=== PATIENT | female | born 1995 | race Caucasian/White ===

== ENCOUNTER 2021-04-04 04:00 | Inpatient (IN) | payer OTHER ==
[2021-04-04] MEDS ORDERED: ELECTROLYTE-148 SOLN 1,000 ML IV SCH (05:15)
[2021-04-04] MEDS ORDERED: METHYLERGONOVINE MALEATE 0.2 MG/1 ML AMP IM PRN (05:16)
[2021-04-04] MEDS ORDERED: BISACODYL 10 MG SUPP.RECT RC PRN (05:16)
[2021-04-04] MEDS ORDERED: oxyCODONE HCL 5 MG TABLET PO PRN (05:16)
[2021-04-04] MEDS ORDERED: BENZOCAINE 28 GM HEMORRHOIDAL OINTMENT TP PRN (05:16)
[2021-04-04] MEDS ORDERED: OXYTOCIN 20 UNITS in 0.9% NS 20 UNIT/1,000 ML INFUS.BAG IV SCH (05:30)
[2021-04-04 06:01] VITALS: BMI 20.5
[2021-04-04 06:25] LABS: BASO % 0.2 % (0-2.0); EOS % 0.2 % (0-4.5); HEMATOCRIT 36.5 % (32.4-45.2); HEMOGLOBIN 12.6 GM/dL (10.7-15.3); LYMPH % 15.5 % (8-40); MCH 32.1 pg (25.7-33.7); MCHC 34.5 g/dl (32.0-36.0); MEAN CELL VOLUME 93.1 fl (80-96); MEAN PLT VOLUME 8.3 fl (7.5-11.1); MONO % 4.1 % (3.8-10.2); PLATELET COUNT 261 10^3/uL (134-434); RBC 3.92 M/mm3 (3.60-5.2); RDW 13.8 % (11.6-15.6)
[2021-04-04] MEDS ORDERED: ACETAMINOPHEN 325 MG TABLET (FP) ONE ×2 (06:27→13:55)
[2021-04-04] MEDS: ACETAMINOPHEN 325 MG TABLET (FP) PO PRN ×2 (06:30→13:53)
[2021-04-04 06:38] LABS: INR 0.84 (0.83-1.09); PROTHROMBIN TIME (PATIENT) 9.8 SEC (9.7-13.0)
[2021-04-04 06:41] LABS: ACTIVATED PTT 25.8 SECONDS (25.2-36.5)
[2021-04-04 06:55] LABS: CALCIUM 8.6 mg/dL (8.5-10.1)
[2021-04-04 06:56] LABS: BLOOD UREA NITROGEN 8.4 mg/dL (7-18)
[2021-04-04 06:59] LABS: CREATININE 0.7 mg/dL (0.55-1.3)
[2021-04-04 07:53] LABS: HIV INTERPRETATION NEGATIVE (NEGATIVE)
[2021-04-04] MEDS ORDERED: OXYTOCIN 20 UNITS in 0.9% NS 20 UNIT/1,000 ML INFUS.BAG IV ONE (09:46)
[2021-04-04] MEDS: BENZOCAINE 20% 57 GM BOTTLE TP PRN (09:49)
[2021-04-04] MEDS: PRENATAL VITAMINS W/ FOLIC ACID TABLET (FP) PO SCH (09:49)
[2021-04-04] MEDS: WITCH HAZEL 50% (TUCKS) 40 PAD/JAR PAD TP PRN (09:50)
[2021-04-04 16:30] LABS: BASO % 0.1 % (0-2.0); HEMATOCRIT 29.3 % (32.4-45.2); HEMOGLOBIN 9.9 GM/dL (10.7-15.3); LYMPH % 2.7 % (8-40); MCH 31.8 pg (25.7-33.7); MCHC 33.9 g/dl (32.0-36.0); MEAN CELL VOLUME 93.7 fl (80-96); MONO % 3.5 % (3.8-10.2); NEUT % 93.7 % (42.8-82.8); PLATELET COUNT 220 10^3/uL (134-434); RBC 3.13 M/mm3 (3.60-5.2); RDW 13.7 % (11.6-15.6)
[2021-04-04 17:20] LABS: ANISOCYTOSIS 1+; MACROCYTOSIS 0; PLATELET ESTIMATE NORMAL
[2021-04-04] MEDS: IBUPROFEN 600 MG TABLET (FP) PO PRN (20:58)
[2021-04-05] MEDS: IBUPROFEN 600 MG TABLET (FP) PO PRN (03:01)
[2021-04-05 08:20] LABS: BASO % 0.2 % (0-2.0); EOS % 0.1 % (0-4.5); HEMATOCRIT 28.9 % (32.4-45.2); HEMOGLOBIN 10.1 GM/dL (10.7-15.3); LYMPH % 5.6 % (8-40); MCHC 35.1 g/dl (32.0-36.0); MEAN CELL VOLUME 94.2 fl (80-96); MONO % 4.1 % (3.8-10.2); PLATELET COUNT 220 10^3/uL (134-434); RBC 3.07 M/mm3 (3.60-5.2); RDW 13.8 % (11.6-15.6); WHITE BLOOD COUNT 9.9 K/mm3 (4.0-10.0)
[2021-04-05] MEDS: PRENATAL VITAMINS W/ FOLIC ACID TABLET (FP) PO SCH (09:59)
[2021-04-05] MEDS ORDERED: DIPHTH,PERTUSS(ACELL),TET 0.5 ML DISP.SYRIN IM ONE (10:00)
[2021-04-05] MEDS ORDERED: SENNOSIDES/DOCUSATE COMBO (SENNA PLUS) TABLET (UD) PO PRN (22:00)
[2021-04-06] MEDS: PRENATAL VITAMINS W/ FOLIC ACID TABLET (FP) PO SCH (09:47)
[2021-04-06] MEDS: WITCH HAZEL 50% (TUCKS) 40 PAD/JAR PAD TP PRN (09:53)
[2021-04-06] MEDS: BENZOCAINE 20% 57 GM BOTTLE TP PRN (09:53)
[2021-04-06 12:07] VITALS: BP 110/64; PULSE 88; TEMP 98.6
== END 2021-04-06 16:45 | disposition home or self-care (01) | DRG 560 ==
LOC: JLDR 04:00 → J3W 17:44
PROVIDERS: ADMIT Obstetrics & Gynecology; ATTEND Obstetrics & Gynecology
PROC: 0W8NXZZ Division of Female Perineum, External Approach (ICD-10-PCS; principal; 2021-04-04)
PROC: 10E0XZZ Delivery of Products of Conception, External Approach (ICD-10-PCS; 2021-04-04)
DX: O80 Encounter for full-term uncomplicated delivery (principal); Z3A.37 37 weeks gestation of pregnancy; Z37.0 Single live birth
CPT/HCPCS: 36415; 59409; 80048; 82962; 85025; 85610; 85730; 86780; 86850; 86900; 86901; 87389; 90715; C9803; U0003; U0005